=== PATIENT | female | born 1950 | race African-American/Black ===

== ENCOUNTER 2018-07-27 06:27 | Day surgery (SDC) | payer MEDICARE, OTHER ==
[~2018-07-27] VITALS: Ht 160 cm; Wt 66.2 kg
[2018-07-27 07:06] VITALS: BP 109/63
[2018-07-27 13:07] VITALS: BP 107/68
== END 2018-07-27 11:15 | disposition home or self-care (01) ==
LOC: DS 06:27 → OR 07:30 → DS 07:30
PROVIDERS: Internal Medicine
PROC: 0DJD8ZZ Inspection of Lower Intestinal Tract, Via Natural or Artificial Opening Endoscopic (ICD-10-PCS; principal; 2018-07-27 09:00)
PROC: 0D7Q7ZZ Dilation of Anus, Via Natural or Artificial Opening (ICD-10-PCS; 2018-07-27 09:00)
DX: K62.5 Hemorrhage of anus and rectum (principal); K59.00 Constipation, unspecified; K62.4 Stenosis of anus and rectum; K63.89 Other specified diseases of intestine; Z68.25 Body mass index [BMI] 25.0-25.9, adult
CPT/HCPCS: 45378; C1769; J1200; J1610; J2250; J2310; J3010; J3490